=== PATIENT | female | born 1985 | race Asian ===

== ENCOUNTER 2019-05-13 23:55 | Emergency (ER) | payer OTHER ==
[~2019-05-13] VITALS: Ht 160 cm; Wt 80.0 kg
[2019-05-13 23:59] VITALS: BP 131/78
[2019-05-14] MEDS ORDERED: METH4TAB3 PO (00:21)
== END 2019-05-14 00:27 | disposition home or self-care (01) ==
LOC: ER 23:56
DX: L23.7 Allergic contact dermatitis due to plants, except food (principal); Z79.899 Other long term (current) drug therapy
CPT/HCPCS: 99283